=== PATIENT | female | born 1985 | race Two or more races ===

== ENCOUNTER → 2021-12-26 | Emergency (ER) | payer BC ==
[~2021-12-26] VITALS: Ht 180.3 cm; Wt 73.5 kg
[~2021-12-26] MED LIST: LAMOTRIGINE PO; SERTRALINE20 MG/1 ML PO
== END | disposition home or self-care (01) ==
LOC: ER 17:47
DX: O20.9 Hemorrhage in early pregnancy, unspecified (principal); Z3A.10 10 weeks gestation of pregnancy